=== PATIENT | female | born 1965 | race Caucasian/White ===

== ENCOUNTER → 2018-04-26 | Outpatient (CLI) | payer BC | LOC: RADNMMAIN 10:32 | PROVIDERS: ATTEND Internal Medicine | DX: Z53.9 Procedure and treatment not carried out, unspecified reason (principal) ==

== ENCOUNTER 2018-04-28 07:37 | Day surgery (SDC) | payer BC ==
[2018-04-27 08:39] VITALS: BMI 17.4
[~2018-04-28 07:37] MED LIST: LACTATED RINGERS 1,000 ML IV SCH; LIDOCAINE 1% 20 ML VIAL (10MG/ML) FOR IV START INTRADERMA PRN
[2018-04-28] MEDS ORDERED: LACTATED RINGERS 1,000 ML IV ONE (08:08)
[2018-04-28 08:20] VITALS: TEMP 98.3
[2018-04-28 08:23] LABS: Glucose,Whole Blood 92 mg/dL (75-99)
[2018-04-28] MEDS ORDERED: LIDOCAINE 1% INJ 10MG/ML (20 ML MDV) ONE (08:29)
[2018-04-28] MEDS ORDERED: PROPOFOL 10 MG/ML 20 ML VIAL IV ONE (08:29)
[2018-04-28 08:51] LABS: Calcium 9.3 mg/dL (8.4-10.2); Potassium 4.7 mmol/L (3.5-5.1)
[2018-04-28 09:12] VITALS: RESP 16
[2018-04-28 09:19] VITALS: BP 149/84; PULSE 53
--- NOTE | 2018-04-28 09:20 | P.PCN ---
Date of Procedure: 04/28/18 Procedure(s) Performed: BRIEF HISTORY: Patient is a 52-year-old pleasant white female, scheduled for an elective colonoscopy as a part of screening for colorectal neoplasia. PROCEDURE PERFORMED: Colonoscopy. PREOPERATIVE DIAGNOSIS: Screening for colon cancer. IV sedation per Anesthesia. PROCEDURE: After informed consent was obtained, the patient, was brought into the endoscopy unit. IV sedation was administered by Anesthesia under continuous monitoring. Digital rectal examination was normal. Initially the Olympus CF- 160 flexible video colonoscope was then inserted in the rectum, gradually advanced into the cecum without any difficulty. Careful examination was performed as the scope was gradually being withdrawn. Ileocecal valve and the appendiceal orifice were visualized and appeared normal. Prep was poor in several areas of the colon.Irrigation was performed using irrigation system. The visualized portions of the mucosa of the cecum, ascending colon, transverse colon, descending colon, sigmoid colon, and rectum appeared normal. Retroflexion was performed in the rectum and no lesions were seen. The patient tolerated the procedure well. IMPRESSION: Normal-appearing colon from rectum to cecum with no evidence of colorectal neoplasia. Poor prep in several areas of the colon. RECOMMENDATIONS: Findings of this examination were discussed with the patient as well as a family. She was advised to have a repeat screening colonoscopy in 10 years.
[2018-04-28 09:49] LABS: Glucose,Whole Blood 102 mg/dL (75-99)
== END 2018-04-28 09:55 | disposition home or self-care (01) ==
LOC: ORWHC2ENDO 07:37
PROVIDERS: ATTEND Internal Medicine Gastroenterology
DX: Z12.11 Encounter for screening for malignant neoplasm of colon (principal); I10 Essential (primary) hypertension; E11.9 Type 2 diabetes mellitus without complications; Z94.0 Kidney transplant status; Z79.4 Long term (current) use of insulin; Z79.52 Long term (current) use of systemic steroids; Z79.899 Other long term (current) drug therapy; Z88.2 Allergy status to sulfonamides; Z87.891 Personal history of nicotine dependence
CPT/HCPCS: 45378; 80048

== ENCOUNTER → 2018-04-28 | Outpatient (CLI) | payer BC ==
--- NOTE | 2018-04-30 09:03 | MM ---
Reason for exam: screening (asymptomatic). Last mammogram was performed 3 years and 11 months ago. History: Family history of breast cancer in sister at age 43. Took hormonal contraceptives for 2 years beginning at age 25. Physical Findings: A clinical breast exam by your physician is recommended on an annual basis and results should be correlated with mammographic findings. MG Screening Mammo w CAD Bilateral CC and MLO view(s) were taken. XCCL view(s) were taken of the right breast. Prior study comparison: May 25, 2014, bilateral MG screening mammo w CAD. August 29, 2011, left diagnostic mammogram w/CAD. The breast tissue is extremely dense which could obscure a lesion on mammography. Possible architectural distortion medial left breast versus summation shadow. ASSESSMENT: Incomplete: need additional imaging evaluation, BI-RAD 0 RECOMMENDATION: Ultrasound of the left breast. [facility] will attempt to contact patient to return for ultrasound.
== END | disposition home or self-care (01) ==
LOC: RADMAMWWP 14:02
PROVIDERS: ATTEND Obstetrics & Gynecology
DX: Z12.31 Encounter for screening mammogram for malignant neoplasm of breast (principal); Z80.3 Family history of malignant neoplasm of breast
CPT/HCPCS: 77067

== ENCOUNTER → 2018-04-29 | Outpatient (CLI) | payer BC ==
--- NOTE | 2018-04-27 19:02 | P.STRESS ---
- Stress Test Note Stress Test Results/Findings: Exam Performed: Exam Date: Reason for Exam: Height: Weight: Protocol: Stage: Duration of Exercise: Resting Heart Rate: Resting Blood Pressure: Maximum Achieved Heart Rate: Maximum Achieved Blood Pressure: 85% PMHR: 100% PMHR: METS: Technologist Comment: Stress Test Results/Findings: Patient referred for stress echo. Stress echo canceled and rescheduled for Lexiscan Cardiolite stress test at a later date
[~2018-04-29] MED LIST changes: +DOBUTamine DRIP for NUC MED 500 MG in DEXTROSE/WATER 1 250ML.BAG IV ONE; -LACTATED RINGERS 1,000 ML IV SCH; -LIDOCAINE 1% 20 ML VIAL (10MG/ML) FOR IV START INTRADERMA PRN
--- NOTE | 2018-04-29 18:21 | ECHOS ---
STRESS ECHOCARDIOGRAM DATE OF SERVICE: 04/29/2018 INDICATIONS: Chest pain. MEDICATIONS: See list. BASELINE HEART RATE: 53 BASELINE BLOOD PRESSURE: 161/104 MAXIMUM HEART RATE: 84 MAXIMUM BLOOD PRESSURE: 182/83 85% MPHR: 145 100% MPHR: 170 METS: MAXIMUM STAGE REACHED: III TOTAL EXERCISE TIME: 10:40 minutes CLINICAL INFORMATION: 52-year-old female with a history of palpitations and PVCs and stress test for preop evaluation. RESULTS: Baseline heart rate 53 beats per minute. Baseline blood pressure 161/100 mmHg. Baseline 12-lead ECG shows normal sinus rhythm with a nonspecific ST-T abnormalities with T-wave inversions inferiorly and PVCs on 12-lead ECG. The patient exercised on Trveor protocol for 10 minutes 40 seconds achieving a peak heart rate of only 84 beats per minute. Blood pressure response was normal. There was no ECG evidence for ischemia. No arrhythmias were noted other than occasional PVCs. The baseline 2D echo images showed normal LV size and systolic function without segmental wall motion abnormalities. With dobutamine infusion, there was a stepwise increment in overall LV contractility without developing any wall motion abnormalities. At recovery regional global LV systolic function remained normal. IMPRESSION: 1. Baseline abnormal ECG with PVCs. 2. Hypertension. 3. No ECG evidence for ischemia. 4. No echocardiographic evidence for ischemia. 5. Suboptimal heart rate response to dobutamine infusion but excellent augmentation of overall LV contractility in a stepwise manner with dobutamine infusion (excellent inotropic response). MMODL / IJN: [id number] /
== END | disposition home or self-care (01) ==
LOC: RADNMMAIN 10:34
PROVIDERS: ATTEND Internal Medicine
DX: I49.3 Ventricular premature depolarization (principal); I10 Essential (primary) hypertension; R94.31 Abnormal electrocardiogram [ECG] [EKG]
CPT/HCPCS: 93351; J1250

== ENCOUNTER → 2018-05-04 | Outpatient (CLI) | payer BC ==
--- NOTE | 2018-05-04 12:07 | USB ---
Reason for exam: additional evaluation requested from abnormal screening. History: Family history of breast cancer in sister at age 43. Took hormonal contraceptives for 2 years beginning at age 25. Physical Findings: Nurse did not find any significant physical abnormalities on exam. US Breast Workup LT Technologist: Sintia Blood, RT (R)(M) Left complete breast ultrasound includes all four quadrants, the retroareolar region and axilla. Finding demonstrates a 0.5 x 0.7cm lesion at 11 o'clock when images upright and 1.4 x 0.8 x 1.5cm supine. The mass is hypoechoic with shadowing and taller than wide. Suspicious, biopsy recommended. These results were verbally communicated with the patient and result sheet given to the patient on 05/04/18. ASSESSMENT: Suspicious, BI-RAD 4 RECOMMENDATION: Ultrasound core biopsy of the left breast. (3D post biopsy marker images to cinfirm correlation with distortion) Called Dr. Villavicencio with mammographic findings and has scheduled an appointment for the patient for 05/19/18 at 2:[address] Bishop. Biopsy scheduled for 05/06/18 at 2:20. PRELIMINARY REPORT CALLED AND FAXED TO DR. BISHOP ON 05/04/18.
--- NOTE | 2018-05-04 12:08 | MM ---
Reason for exam: additional evaluation requested from abnormal screening. Last mammogram was performed less than 1 month ago. History: Family history of breast cancer in sister at age 43. Took hormonal contraceptives for 2 years beginning at age 25. Physical Findings: Nurse did not find any significant physical abnormalities on exam. MG 3D Work Up W/Cad LT MLO, LM, and spot compression CC view(s) were taken of the left breast. Prior study comparison: April 28, 2018, bilateral MG screening mammo w CAD. May 25, 2014, bilateral MG screening mammo w CAD. The breast tissue is extremely dense which could obscure a lesion on mammography. Benign calcifications in the left breast. Distortion at 12 o'clock 5-6cm from nipple in the central left breast. These results were verbally communicated with the patient and result sheet given to the patient on 05/04/18. ASSESSMENT: Suspicious, BI-RAD 4 RECOMMENDATION: Ultrasound core biopsy of the left breast. Called Dr. Villavicencio with mammographic findings and has scheduled an appointment for the patient for 05/19/18 at 2:[address] Bishop. Biopsy scheduled for 05/06/18 at 2:20. PRELIMINARY REPORT CALLED AND FAXED TO DR. BISHOP ON 05/04/18.
== END ==
LOC: RADUSWWP 08:44
PROVIDERS: ATTEND Obstetrics & Gynecology
DX: R92.8 Other abnormal and inconclusive findings on diagnostic imaging of breast (principal)
CPT/HCPCS: 77061; 77065

== ENCOUNTER → 2018-05-06 | Day surgery (SDC) | payer BC ==
[2018-05-06 13:53] VITALS: RESP 16; BMI 18.0
[2018-05-06 15:09] VITALS: BP 137/81; PULSE 67; TEMP 98.2
--- NOTE | 2018-05-06 16:08 | USB ---
EXAMINATION TYPE: US biopsy breast VAD LT, MG 3D diag mammo wo cad LT DATE OF EXAM: 05/06/2018 CLINICAL HISTORY: R92.8 PREV ABN.MAMMO. TECHNIQUE: Ultrasound guided core biopsy of left breast. COMPARISON: 05/04/2018 and 04/28/2018 FINDINGS: The procedure of ultrasound guided core biopsy was explained to the patient. Benefits, alternatives, and risks were discussed. An informed consent was then obtained. Preprocedural timeout was performed. The patient was placed in supine positioning for imaging and for the procedure. The overlying skin was prepped and draped in usual sterile fashion. 10 cc of lidocaine buffered with bicarbonate was used as anesthetic into the skin and subcutaneous tissue up to a hypoechoic approximately 7 mm mass in the left breast around the 11:00 position as the breast is noted to be very mobile on exam. Under ultrasound guidance, a 12-gauge vacuum assisted biopsy gun device was used to obtain 5 core samples. Following this, a ribbon-shaped biopsy marker was left in lesion. This appears to correspond to the architectural distortion seen on the prior screening and diagnostic exams The patient tolerated the procedure well without any immediate complication. The patient was kept in the radiology department for short stay after the procedure and then discharged home in stable condition. IMPRESSION: Successful, uncomplicated ultrasound guided core biopsy of a 7 mm mass in the left breast around the 11:00 position although the breast is noted to be extremely mobile on real-time exam, full pathology results to follow. This appears to correspond to the architectural distortion seen on the screening and diagnostic mammograms on post biopsy marker imaging. Pathology Results: Benign LEFT BREAST LESION, NEEDLE CORE BIOPSIES: Fibrocystic type changes including dense breast stroma with benign, focally cystically dilated, ductal units and some features suggestive of fibroadenomatoid change. Recommendation Follow up mammogram of the left breast in 6 months. YESICA
== END | disposition home or self-care (01) ==
LOC: RADUSWWP 13:32
PROVIDERS: ATTEND Surgery
DX: N60.12 Diffuse cystic mastopathy of left breast (principal); R92.2 Inconclusive mammogram
CPT/HCPCS: 88305; 77065; 77061; 19083; A4648; J2001

== ENCOUNTER → 2018-05-13 | Outpatient (CLI) | payer BC ==
[2018-05-13 17:06] LABS: HCT 33.6 % (34.0-46.0); HGB 10.5 gm/dL (11.4-16.0); Hypochromasia Slight; MCH 31.8 pg (25.0-35.0); MCHC 31.2 g/dL (31.0-37.0); MCV 101.8 fL (80.0-100.0); Macrocytosis Slight; Mean Platelet Volume 8.5; Platelet Count 170 k/uL (150-450); RDW 15.3 % (11.5-15.5); WBC 7.5 k/uL (3.8-10.6)
[2018-05-13 20:05] LABS: Band Neutrophils % 5 %; Eosinophils # (M) 0.08 k/uL (0-0.7); Lymphocytes # (M) 1.65 k/uL (1.0-4.8); Monocytes # (M) 0.38 k/uL (0-1.0); Myelocytes # (M) 0.08 k/uL (0); Myelocytes % 1 %; Neutrophils % (M) 68 %; Nucleated Red Blood Cells 0 /100 WBC (0-0); Total Cells Counted 200
[2018-05-13 20:06] LABS: Reactive Lymphocytes Present
[2018-05-13 20:07] LABS: Large Platelets Present; Polychromasia Present
== END | disposition home or self-care (01) ==
LOC: LABPAT 15:28
PROVIDERS: ATTEND Obstetrics & Gynecology
DX: Z01.818 Encounter for other preprocedural examination (principal); I10 Essential (primary) hypertension; D06.9 Carcinoma in situ of cervix, unspecified; Z01.812 Encounter for preprocedural laboratory examination
CPT/HCPCS: 36415; 85025; 93005

== ENCOUNTER 2018-05-18 07:49 | Day surgery (SDC) | payer BC ==
[2018-05-14 13:29] VITALS: BMI 18.5
[~2018-05-18 07:49] MED LIST changes: +DEXAMETHASONE SOD PHOSPHATE 10 MG/ML 1 ML VIAL IV ONE; -DOBUTamine DRIP for NUC MED 500 MG in DEXTROSE/WATER 1 250ML.BAG IV ONE; +LACTATED RINGERS 1,000 ML IV SCH; +LIDOCAINE 1% 20 ML VIAL (10MG/ML) FOR IV START INTRADERMA PRN; +MIDAZOLAM 2 MG/2 ML VIAL IV PRN; +ONDANSETRON 4 MG/2 ML VIAL IVP ONE; +ceFAZolin 1,000 MG in DEXTROSE/WATER 1 50ML.BAG IV ONE; +fentaNYL (PF) 50 MCG/ML 2 ML AMP IV PRN
[2018-05-18 08:40] VITALS: TEMP 98.2
[2018-05-18 08:48] LABS: Glucose,Whole Blood 164 mg/dL (75-99)
[2018-05-18] MEDS ORDERED: LIDOCAINE 1% INJ 10MG/ML (20 ML MDV) ONE (09:30)
[2018-05-18] MEDS ORDERED: MIDAZOLAM 2 MG/2 ML VIAL ONE (09:30)
[2018-05-18] MEDS ORDERED: fentaNYL (PF) 50 MCG/ML 2 ML AMP ONE (09:30)
[2018-05-18] MEDS ORDERED: HYDROCORTISONE SUCCINATE 100 MG/2 ML VIAL ONE (09:30)
[2018-05-18] MEDS ORDERED: PROPOFOL 10 MG/ML 20 ML VIAL IV ONE (09:30)
[2018-05-18] MEDS ORDERED: ROPIVACAINE 5 MG/ML 30 ML VIAL MISCELLANE ONE ×2 (09:41)
[2018-05-18] MEDS ORDERED: IODINE/POTASS IOD (LUGOLS) BTL TOPICAL ONE (09:55)
[2018-05-18] MEDS ORDERED: FERRIC SUBSULFATE (MONSELS) JAR TOPICAL ONE (09:55)
--- NOTE | 2018-05-18 10:23 | P.OP ---
Date of Procedure: 05/18/18 Preoperative Diagnosis: ANAT 3 Postoperative Diagnosis: same Procedure(s) Performed: Cervical cold knife cone biopsy Surgeon: Toyin Villavicencio Estimated Blood Loss (ml): 25 IV fluids (ml): 100 Urine output (ml): 500 Pathology: other Condition: stable Disposition: PACU Indications for Procedure: ANAT 3 Operative Findings: Cervix free of any gross lesions. Description of Procedure: After the patient was met in the preoperative holding area and all questions were answered, she was taken to the operating room where anesthetic was administered without incident. She was positioned, prepped and draped in the dorsal lithotomy position. Bladder was drained for approximately 100 mL of clear urine. Speculum was placed in the vagina and the cervix was grasped anteriorly with single-tooth tenaculum. Sutures were placed at the 3 and 9:00 positions superficially with 2-0 Vicryl suture. Lugol's was placed on the cervix to delineate the transformation zone. 11 blade scalpel was utilized to incise the cervix just lateral to the transformation zone. This was angled in to create a cone shaped specimen. This was removed. Bovie electrocautery was utilized to cauterize the base of the biopsy. Persistent small amount of bleeding was encountered. The sutures previously placed were therefore utilized to superficially stitch the edges of the biopsy in a running fashion circumferentially. This allowed for significant improvement in hemostasis. A piece of Surgicel was then placed in the remaining on biopsies placed. Hemostasis was then noted. Instruments removed from the vagina. Patient was awoken from anesthetic without incident.
[2018-05-18] MEDS ORDERED: INSULIN ASPART 100 UNIT/ML 1 ML 10 ML VIAL SQ ONE (10:46)
[2018-05-18 10:54] LABS: Glucose,Whole Blood 239 mg/dL (75-99)
[2018-05-18] MEDS ORDERED: LACTATED RINGERS 1,000 ML IV ONE (11:04)
[2018-05-18 11:27] VITALS: RESP 18
[2018-05-18 11:33] LABS: Glucose,Whole Blood 217 mg/dL (75-99)
[2018-05-18 11:45] VITALS: BP 110/62; PULSE 64
== END 2018-05-18 11:58 | disposition home or self-care (01) ==
LOC: OR 07:49
PROVIDERS: ATTEND Obstetrics & Gynecology
DX: D06.0 Carcinoma in situ of endocervix (principal); D64.9 Anemia, unspecified; K21.9 Gastro-esophageal reflux disease without esophagitis; Z87.891 Personal history of nicotine dependence; E11.9 Type 2 diabetes mellitus without complications; Z79.4 Long term (current) use of insulin; I10 Essential (primary) hypertension; N28.9 Disorder of kidney and ureter, unspecified; Q61.3 Polycystic kidney, unspecified; Z79.52 Long term (current) use of systemic steroids; Z79.899 Other long term (current) drug therapy; Z88.2 Allergy status to sulfonamides
CPT/HCPCS: 57520; 81025; 88307; J2250; J1100; J1720; J2405; J2001; J3010; J0690; J2795; J2704

== ENCOUNTER 2018-07-27 13:17 | Inpatient (IN) | payer BC ==
[2018-07-27] MEDS ORDERED: SODIUM CHLORIDE 0.9% 1,000 ML IV STA (14:57)
[2018-07-27] MEDS ORDERED: ONDANSETRON 4 MG/2 ML VIAL IM STA (14:57)
[2018-07-27] MEDS ORDERED: ONDANSETRON 4 MG/2 ML VIAL IVP STA (15:14)
[2018-07-27 15:32] LABS: Appearance,Urine Clear (Clear); Bacteria,Urine Occasional /hpf; Bilirubin,Urine Negative (Negative); Blood,Urine Trace (Negative); Color,Urine Light Yellow; Glucose,Urine (UA) Trace (Negative); Ketones,Urine Negative (Negative); Leukocyte Esterase,Urine Negative (Negative); Mucus,Urine Rare /hpf; Nitrite,Urine Negative (Negative); PH, Urine 5.5 (5.0-8.0); Protein,Urine 1+ (Negative); RBC,Urine 1 /hpf (0-5); Specific Gravity,Urine 1.008 (1.001-1.035); Squamous Epithelial Cell,Urine 2 /hpf (0-4); Urobilinogen,Urine <2.0 mg/dL (<2.0)
[2018-07-27 15:35] LABS: HGB 10.9 gm/dL (11.4-16.0); MCH 31.1 pg (25.0-35.0); MCHC 31.1 g/dL (31.0-37.0); MCV 100.1 fL (80.0-100.0); Macrocytosis Slight; Mean Platelet Volume 7.3; Platelet Count 213 k/uL (150-450); Poikilocytosis Slight; RBC 3.49 m/uL (3.80-5.40); RDW 14.4 % (11.5-15.5); WBC 7.9 k/uL (3.8-10.6)
[2018-07-27 15:36] LABS: Calcium 9.4 mg/dL (8.4-10.2); Magnesium 1.8 mg/dL (1.6-2.3); Potassium 5.3 mmol/L (3.5-5.1)
[2018-07-27 15:43] LABS: Phosphorus 11.5 mg/dL (2.5-4.5)
--- NOTE | 2018-07-27 15:46 | ED ---
General Adult HPI - General Chief complaint: Weakness Stated complaint: weakness, unable to eat Source: patient Mode of arrival: ambulatory Limitations: physical limitation - Related Data Home Medications Medication Instructions Recorded Confirmed Ferrous Sulfate [Feosol] 325 mg PO DAILY 03/31/16 07/27/18 Mycophenolate Mofetil [Cellcept] 1,000 mg PO BID 03/31/16 07/27/18 Sodium Bicarbonate 650 mg PO BID 03/31/16 07/27/18 Tacrolimus [Prograf] 5 mg PO Q12H 03/31/16 07/27/18 predniSONE 5 mg PO DAILY 03/31/16 07/27/18 Doxazosin [Cardura] 1 mg PO HS 04/27/18 07/27/18 Insulin Glargine,Hum.rec.anlog 9 units SQ HS 04/27/18 07/27/18 [Toujeo Solostar] Insulin Aspart [Novolog Flexpen] See Protocol SQ AC-TID 05/04/18 07/27/18 Atenolol [Tenormin] 50 mg PO BID 07/27/18 07/27/18 Calcitriol [Rocaltrol] 0.25 mcg PO BID 07/27/18 07/27/18 Calcium Acetate [Phoslo] 1,334 mg PO TID 07/27/18 07/27/18 Ergocalciferol (Vitamin D2) 50,000 unit PO MOTH 07/27/18 07/27/18 [Vitamin D2] Magnesium Oxide [Magox 400] 400 mg PO DAILY 07/27/18 07/27/18 Tacrolimus [Prograf] 1 mg PO Q12H 07/27/18 07/27/18 Allergies Allergy/AdvReac Type Severity Reaction Status Date / Time Sulfa (Sulfonamide Allergy Rash/Hives Verified 07/27/18 14:39 Antibiotics) Review of Systems ROS Statement: Those systems with pertinent positive or pertinent negative responses have been documented in the HPI. ROS Other: All systems not noted in ROS Statement are negative. Past Medical History Past Medical History: Diabetes Mellitus, GERD/Reflux, Hypertension, Renal Disease Additional Past Medical History / Comment(s): polycystic kidney, end stage renal disease. parathyroid disorder History of Any Multi-Drug Resistant Organisms: None Reported Past Surgical History: Section, Uterine Ablation Additional Past Surgical History / Comment(s): Hernia surgery 12/2014, kidney transplant 02/2015, parathyroid removal 2014, whipple 2009, ectopic 2001 Past Anesthesia/Blood Transfusion Reactions: No Reported Reaction Past Psychological History: No Psychological Hx Reported Smoking Status: Former smoker Past Alcohol Use History: None Reported Past Drug Use History: None Reported - Past Family History Sister(s) Family Medical History: Cancer Additional Family Medical History / Comment(s): Cervical CA Father Family Medical History: Diabetes Mellitus Additional Family Medical History / Comment(s): polycystic kidney General Exam Limitations: physical limitation Course Vital Signs 07/27/18 13:20 Temperature 98.4 F Pulse Rate 58 L Respiratory 18 Rate Blood Pressure 157/70 O2 Sat by Pulse 100 Oximetry Medical Decision Making - Medical Decision Making Dictation was produced using Expert TA dictation software. please excuse any grammatical, word or spelling errors. Chief Complaint: 52-year-old female past medical history of end-stage renal disease status post hemodialysis and renal transplant presents with nausea and vomiting. History of Present Illness: She states that her symptoms have been ongoing for approximate 4 days. She states that she's been having multiple bouts of nausea vomiting and poor by mouth tolerance. Patient denies any constitutional symptoms. She called her research scholar office today and was instructed to come to the emergency department patient has a renal transplant that's working very slowly. She has history of. To get dialysis and hemodialysis. Patient is still currently taking immunosuppressive medications. The ROS documented in this emergency department record has been reviewed and confirmed by me. Those systems with pertinent positive or negative responses have been documented in the HPI. All other systems are other negative and/or noncontributory. PHYSICAL EXAM: General Impression: Alert and oriented x3, not in acute distress HEENT: Normocephalic atraumatic, extra-ocular movements intact, pupils equal and reactive to light bilaterally, mucous membranes moist. Cardiovascular: Heart regular rate and rhythm, S1&S2 audible, no murmurs, rubs or gallops Chest: Lungs clear to auscultation bilaterally, no rhonchi, no wheeze, no rales Abdomen: Bowel sounds present, abdomen soft, non-tender, non-distended, no organomegaly Musculoskeletal: Pulses present and equal in all extremities, no peripheral edema Motor: Power 5/5 bilaterally, no focal deficits noted Neurological: CN II-XII grossly intact, no focal motor or sensory deficits noted Skin: Intact with no visualized rashes Psych: Normal affect and mood ED course: 52-year-old female presents with chief complaint of nausea, vomiting and generalized weakness. Signs upon arrival are within acceptable limits. Laboratory evaluation obtained. CBC unremarkable. Metabolic panel shows sodium 126, potassium 5.3. There is a mild Acidosis. Lactic acidosis of 2.5. Creatinine of 5.02, BUN of 68. Urinalysis is rather unremarkable. If once test negative. Patient is very labile in terms of kidney function. Patient given intravenous fluids. Patient also given some Kayexalate for hyperkalemia. Patient be admitted with nephrology on consult. EKG interpretation: Ventricular rate 53, sinus bradycardia, AZ interval 170, care is 88, QTc 444. No AZ prolongation, no QTC prolongation, no ST or T-wave changes noted. . Overall, this EKG is unremarkable - Lab Data Result diagrams: 07/27/18 14:41 07/27/18 14:41 Lab Results 07/27/18 07/27/18 07/27/18 Range/Units 14:41 14:41 14:41 WBC 7.9 (3.8-10.6) k/uL RBC 3.49 L (3.80-5.40) m/uL Hgb 10.9 L (11.4-16.0) gm/dL Hct 35.0 (34.0-46.0) % MCV 100.1 H (80.0-100.0) fL MCH 31.1 (25.0-35.0) pg MCHC 31.1 (31.0-37.0) g/dL RDW 14.4 (11.5-15.5) % Plt Count 213 (150-450) k/uL Neutrophils % (Manual) 73 % Band Neutrophils % 5 % Lymphocytes % (Manual) 19 % Monocytes % (Manual) 3 % Neutrophils # (Manual) 6.10 (1.3-7.7) k/uL Lymphocytes # (Manual) 1.50 (1.0-4.8) k/uL Monocytes # (Manual) 0.24 (0-1.0) k/uL Nucleated RBCs 0 (0-0) /100 WBC Manual Slide Review Performed Poikilocytosis Slight Macrocytosis Slight Sodium 126 L (137-145) mmol/L Potassium 5.3 H (3.5-5.1) mmol/L Chloride 96 L (98-107) mmol/L Carbon Dioxide 14 L (22-30) mmol/L Anion Gap 16 mmol/L BUN 68 H (7-17) mg/dL Creatinine 5.02 H (0.52-1.04) mg/dL Est GFR (CKD-EPI)AfAm 11 (>60 ml/min/1.73 sqM) Est GFR (CKD-EPI)NonAf 9 (>60 ml/min/1.73 sqM) Glucose 214 H (74-99) mg/dL Plasma Lactic Acid Billy 2.5 H* (0.7-2.0) mmol/L Calcium 9.4 (8.4-10.2) mg/dL Phosphorus 11.5 H* (2.5-4.5) mg/dL Magnesium 1.8 (1.6-2.3) mg/dL Urine Color Urine Appearance (Clear) Urine pH (5.0-8.0) Ur Specific [place] (1.001-1.035) Urine Protein (Negative) Urine Glucose (UA) (Negative) Urine Ketones (Negative) Urine Blood (Negative) Urine Nitrite (Negative) Urine Bilirubin (Negative) Urine Urobilinogen (<2.0) mg/dL Ur Leukocyte Esterase (Negative) Urine RBC (0-5) /hpf Urine WBC (0-5) /hpf Ur Squamous Epith Cells (0-4) /hpf Urine Bacteria (None) /hpf Urine Mucus (None) /hpf Influenza Type A RNA (Not Detectd) Influenza Type B (PCR) (Not Detectd) 07/27/18 07/27/18 Range/Units 14:41 15:22 WBC (3.8-10.6) k/uL RBC (3.80-5.40) m/uL Hgb (11.4-16.0) gm/dL Hct (34.0-46.0) % MCV (80.0-100.0) fL MCH (25.0-35.0) pg MCHC (31.0-37.0) g/dL RDW (11.5-15.5) % Plt Count (150-450) k/uL Neutrophils % (Manual) % Band Neutrophils % % Lymphocytes % (Manual) % Monocytes % (Manual) % Neutrophils # (Manual) (1.3-7.7) k/uL Lymphocytes # (Manual) (1.0-4.8) k/uL Monocytes # (Manual) (0-1.0) k/uL Nucleated RBCs (0-0) /100 WBC Manual Slide Review Poikilocytosis Macrocytosis Sodium (137-145) mmol/L Potassium (3.5-5.1) mmol/L Chloride (98-107) mmol/L Carbon Dioxide (22-30) mmol/L Anion Gap mmol/L BUN (7-17) mg/dL Creatinine (0.52-1.04) mg/dL Est GFR (CKD-EPI)AfAm (>60 ml/min/1.73 sqM) Est GFR (CKD-EPI)NonAf (>60 ml/min/1.73 sqM) Glucose (74-99) mg/dL Plasma Lactic Acid Billy (0.7-2.0) mmol/L Calcium (8.4-10.2) mg/dL Phosphorus (2.5-4.5) mg/dL Magnesium (1.6-2.3) mg/dL Urine Color Light Yellow Urine Appearance Clear (Clear) Urine pH 5.5 (5.0-8.0) Ur Specific [place] 1.008 (1.001-1.035) Urine Protein 1+ H (Negative) Urine Glucose (UA) Trace H (Negative) Urine Ketones Negative (Negative) Urine Blood Trace H (Negative) Urine Nitrite Negative (Negative) Urine Bilirubin Negative (Negative) Urine Urobilinogen <2.0 (<2.0) mg/dL Ur Leukocyte Esterase Negative (Negative) Urine RBC 1 (0-5) /hpf Urine WBC 2 (0-5) /hpf Ur Squamous Epith Cells 2 (0-4) /hpf Urine Bacteria Occasional H (None) /hpf Urine Mucus Rare H (None) /hpf Influenza Type A RNA Not Detected (Not Detectd) Influenza Type B (PCR) Not Detected (Not Detectd) Disposition Clinical Impression: GHAZAL (acute kidney injury) Disposition: ADMITTED IP TO THIS HOSP Condition: Fair Referrals: Krystyna White MD [Primary Care Provider] - 1-2 days Decision Time: 16:34
--- NOTE | 2018-07-27 15:49 | XR ---
EXAMINATION TYPE: XR chest 2V DATE OF EXAM: 07/27/2018 COMPARISON: CT abdomen dated 2012 HISTORY: Weakness, unable to eat TECHNIQUE: Frontal and lateral views of the chest are obtained. FINDINGS: There is no focal air space opacity, pleural effusion, or pneumothorax seen. The cardiac silhouette size is within normal limits. The osseous structures are intact. Surgical clips in the u pper abdomen. There is branching air in the right upper quadrant. IMPRESSION: No acute cardiopulmonary process. Pneumobilia is chronic.
[2018-07-27 16:01] LABS: Band Neutrophils % 5 %; Monocytes # (M) 0.24 k/uL (0-1.0); Neutrophils % (M) 73 %; Nucleated Red Blood Cells 0 /100 WBC (0-0); Total Cells Counted 100
[2018-07-27] MEDS ORDERED: ACETAMINOPHEN TAB 325 MG TAB PO PRN (16:30)
[2018-07-27] MEDS ORDERED: NALOXONE 0.4 MG/ML 1 ML VIAL IV PRN (16:30)
[2018-07-27] MEDS ORDERED: SODIUM POLYSTYRENE SULFONATE 15 GM/60 ML BOTTLE PO ONE (16:32)
[2018-07-27 18:37] LABS: Glucose,Whole Blood 195 mg/dL (75-99)
[2018-07-27] MEDS ORDERED: ONDANSETRON 4 MG TAB PO PRN (20:15)
[2018-07-27] MEDS: SODIUM CHLORIDE 0.9% 1,000 ML IV SCH (21:01)
[2018-07-27] MEDS: CALCITRIOL 0.25 MCG CAP PO SCH (21:26)
[2018-07-27] MEDS: ATENOLOL 50 MG TAB PO SCH (21:26)
[2018-07-27] MEDS: SODIUM BICARBONATE TAB 650 MG TAB PO SCH (21:26)
[2018-07-27] MEDS: DOXAZOSIN 1 MG TAB PO SCH (21:26)
[2018-07-27 21:29] LABS: Glucose,Whole Blood 284 mg/dL (75-99)
[2018-07-27] MEDS: INSULIN DETEMIR 100 UNIT/ML 10 ML VIAL SQ SCH (21:31)
[2018-07-27] MEDS: INSULIN ASPART 100 UNIT/ML 1 ML 10 ML VIAL SQ SCH (21:31)
[2018-07-27] MEDS: CALCIUM ACETATE 667 MG CAP PO SCH (21:34)
[2018-07-27] MEDS ORDERED: ALPRAZolam 0.25 MG TAB PO PRN (21:36)
[2018-07-27] MEDS: HYDROcodone/APAP 5-325MG 1 EACH TAB PO PRN (21:57)
[2018-07-27] MEDS: CELLCEPT 500 MG PO SCH (22:03)
[2018-07-27] MEDS: PROGRAF 1 MG PO SCH (22:03)
[2018-07-27 22:04] LABS: Prothrombin Time 10.6 sec (9.0-12.0)
[2018-07-27] MEDS: PROGRAF 5 MG PO SCH (22:04)
[2018-07-27 22:08] LABS: Albumin 3.5 g/dL (3.5-5.0); Calcium 8.9 mg/dL (8.4-10.2); Potassium 4.8 mmol/L (3.5-5.1); Total Bilirubin 0.5 mg/dL (0.2-1.3); Total Protein 5.8 g/dL (6.3-8.2)
[2018-07-27] MEDS: PANTOPRAZOLE 40 MG/10 ML VIAL IVP SCH (22:14)
--- NOTE | 2018-07-27 22:57 | HP ---
HISTORY AND PHYSICAL CHIEF COMPLAINT: Renal failure. HISTORY OF PRESENT ILLNESS: This 52-year-old woman with a past medical history of multiple medical problems, including history of diabetes mellitus, GERD, hypertension, history of renal disease, history of polycystic kidney disease, history of renal transplant, being followed by Dr. White in the outpatient setting, is also being followed by [facility]. The last transplant was in 2013 on the right pelvic kidney. The patient also had Whipple's procedure for a pancreatic mass previously. The patient also has some baseline diarrhea. From this last weekend onwards the patient was not feeling well. On Thursday subsequently the patient had nausea, vomiting and increased diarrhea. The patient continued to feel weak and tired and the patient came to [facility] and was admitted for further evaluation and treatment. The patient was unable to keep anything down. In the ER, the patient was found to have a creatinine of 5.02. The baseline creatinine is around 2.6 and 3.79, sodium 127, potassium 5.3, plasma lactic acid 2.4. The patient was started on IV fluids and admitted for further evaluation and treatment. There is no history of any fever, rigor or chills. No history of headache, loss of consciousness, seizures at this time. The phosphorus was found to be 11.5. PAST MEDICAL HISTORY: 1. History of diabetes mellitus. 2. History of GERD. 3. History of hypertension. 4. History of polycystic kidney disease. 5. History of renal disease. 6. History of renal transplant. HOME MEDICATIONS: 1. Prednisone 5 mg daily. 2. Prograf 6 mg b.i.d. 3. Sodium bicarb 650 mg p.o. b.i.d. 4. CellCept 2000 mg p.o. b.i.d. 5. Magnesium oxide 400 mg p.o. daily. 6. NovoLog before meals t.i.d. 7. Toujeo 9 units subcutaneously at bedtime. 8. Iron sulfate 325 mg p.o. daily. 9. Vitamin D2 50,000 p.o. monthly. 10.Cardura 1 mg p.o. at bedtime. 11.PhosLo 1334 mg p.o. t.i.d. 12.Rocaltrol 0.25 mcg p.o. b.i.d. 13.Tenormin 50 mg p.o. b.i.d. ALLERGIES: SULFA. FAMILY HISTORY: History of cervical cancer in the family. SOCIAL HISTORY: Previous history of smoking. No history of alcohol intake. REVIEW OF SYSTEMS: ENT: No diminished hearing. No diminished vision. CARDIOVASCULAR SYSTEM: No angina, palpitations. RESPIRATORY SYSTEM: As mentioned earlier. GI: As mentioned earlier. : As mentioned earlier. NERVOUS SYSTEM: No numbness, weakness. ALLERGY/IMMUNOLOGY: No asthma, hayfever. MUSCULOSKELETAL: As mentioned earlier. HEMATOLOGY/ONCOLOGY: No history of anemia. ENDOCRINE: As mentioned earlier. CONSTITUTIONAL: As mentioned earlier. DERMATOLOGY: Negative. RHEUMATOLOGY: Negative. PSYCHIATRY: As mentioned earlier. PHYSICAL EXAMINATION: Patient alert and oriented x3. Pulse 64, blood pressure 143/72, respiration 19, temperature 98.9, pulse ox 97% on room air. HEENT: Conjunctivae normal. Facial puffiness present. Oral mucosa moist. NECK: Edematous. Otherwise, jugular venous distention visible. CARDIOVASCULAR SYSTEM: S1, S2 muffled. Ejection systolic murmur present. No S3. No S4. RESPIRATORY SYSTEM: Breath sounds diminished at the bases. A few scattered rhonchi and crackles. ABDOMEN: Soft, non-tender. LEGS: Minimal edema. NERVOUS SYSTEM: Higher functions as mentioned earlier. Moves all 4 limbs. Mild diffuse weakness. LYMPHATICS: No lymph node palpable in neck, axillae or groin. SKIN: No ulcer, rash, bleeding. JOINTS: No active deforming arthropathy. LABS: WBC 7.9, hemoglobin 10.9, MCV 100.1, and sodium 126, potassium 5.3. Creatinine is 5.02. ASSESSMENT: 1. Acute on chronic renal failure with possible acute prerenal acute tubular necrosis secondary to prerenal factors and dehydration. 2. Chronic kidney disease, stage III. 3. Hyponatremia. 4. Hyperkalemia. 5. Metabolic acidosis, present on admission. 6. Hyperphosphatemia. 7. Anemia, macrocytic, of chronic disease. 8. History of polycystic kidney disease and renal transplant. 9. History of diabetes mellitus, type 2. 10.Gastroesophageal reflux disease. 11.Hypertension. 12.History of section. 13.History of uterine ablation. 14.History of parathyroidectomy. 15.History of Whipple's procedure for pancreatic tumor. 16.History of ectopic . 17.Remote history of nicotine dependence. 18.Mild to moderate protein-calorie malnutrition with a body mass index of 18.1. 19.FULL CODE. RECOMMENDATIONS AND DISCUSSION: In this 52-year-old woman who presented with multiple complex medical issues, we will monitor the patient closely, continue the current management, continue symptomatic treatment. The creatinine is definitely worse and exact etiology is undetermined at this time. I recommend IV fluids cautiously and also nephrology evaluation. Would also recommend symptomatic treatment for the gastroenterologic symptoms and start with clear liquids closely. Avoid nephrotoxic medication. Monitor renal function closely. Monitor blood sugars closely. Resume the home medications. Medication reconciliation was done. Prognosis guarded because of multiple complex medical issues. Discussed with the patient, who understands and agrees. Further recommendations to follow. A copy of this dictation is being forwarded to Dr. White, who is the primary physician. See orders for further details. MMODL / IJN: [id number] /
[2018-07-28] MEDS: SODIUM CHLORIDE 0.9% 1,000 ML IV SCH ×3 (03:18→21:28)
[2018-07-28 05:53] LABS: Glucose,Whole Blood 82 mg/dL (75-99)
[2018-07-28] MEDS: INSULIN ASPART 100 UNIT/ML 1 ML 10 ML VIAL SQ SCH ×4 (06:07→21:27)
[2018-07-28] MEDS: SEVELAMER 800 MG TAB PO SCH ×3 (06:17→19:57)
[2018-07-28 06:30] LABS: Basophils % (A) 1 %; Eosinophils # (A) 0.1 k/uL (0-0.7); Eosinophils % (A) 1 %; HCT 29.8 % (34.0-46.0); Lymphocytes # (A) 1.8 k/uL (1.0-4.8); Lymphocytes % (A) 27 %; MCH 31.4 pg (25.0-35.0); MCHC 31.6 g/dL (31.0-37.0); MCV 99.3 fL (80.0-100.0); Mean Platelet Volume 7.5; Monocytes # (A) 0.3 k/uL (0-1.0); Monocytes % (A) 5 %; Neutrophils # (A) 4.3 k/uL (1.3-7.7); Neutrophils % (A) 64 %; Platelet Count 183 k/uL (150-450); Poikilocytosis Slight; RDW 14.5 % (11.5-15.5); WBC 6.8 k/uL (3.8-10.6)
[2018-07-28 06:34] LABS: HGB 9.4 gm/dL (11.4-16.0)
[2018-07-28 06:43] LABS: Calcium 8.8 mg/dL (8.4-10.2); Potassium 4.9 mmol/L (3.5-5.1)
[2018-07-28] MEDS: PANTOPRAZOLE 40 MG/10 ML VIAL IVP SCH ×2 (08:35→20:15)
[2018-07-28] MEDS: MAGNESIUM OXIDE 400 MG TAB PO SCH (08:35)
[2018-07-28] MEDS: SODIUM BICARBONATE TAB 650 MG TAB PO SCH ×2 (08:35→20:21)
[2018-07-28] MEDS: FERROUS SULFATE 325 MG TAB PO SCH (08:35)
[2018-07-28] MEDS: ATENOLOL 50 MG TAB PO SCH ×2 (08:35→20:15)
[2018-07-28] MEDS: CALCITRIOL 0.25 MCG CAP PO SCH ×2 (08:35→20:15)
[2018-07-28] MEDS: CALCIUM ACETATE 667 MG CAP PO SCH ×3 (08:35→20:21)
[2018-07-28] MEDS: predniSONE 5 MG TAB PO SCH (08:36)
[2018-07-28] MEDS: CELLCEPT 500 MG PO SCH ×2 (08:36→20:19)
[2018-07-28] MEDS: HEPARIN SODIUM,PORCINE 5,000 UNIT/ML 1 ML VIAL SQ SCH ×2 (08:36→20:15)
[2018-07-28] MEDS: PROGRAF 5 MG PO SCH ×2 (08:36→20:18)
[2018-07-28] MEDS: PROGRAF 1 MG PO SCH ×2 (08:36→20:16)
--- NOTE | 2018-07-28 11:37 | P.NPCON ---
History of Present Illness - Reason for Consult chronic renal failure - History of Present Illness Reason for consultation: Acute kidney injury on chronic kidney disease History of present illness: Patient is a 52-year-old female seen in renal consultation for acute kidney injury and chronic kidney disease. Patient has history of chronic kidney disease stage V with baseline creatinine in the range of 3.5-4. Patient has a history of donor renal allograft from 2015 from [facility]. Posttransplant she had developed hydronephrosis and a renal function has remained quite weak. Renal function has declined recently. Creatinine today is 5.21. Patient was interested in peritoneal dialysis but was told she is not a candidate due to hernias. She presented to the hospital due to not feeling well along with nausea and vomiting. No significant diarrhea. No fever or chills. Hemodynamically she stable. Sodium is improved to 132. She is maintained on Prograf, CellCept and prednisone for immunosuppression. Admits to good urine output. Denies use of NSAIDs. Vital signs are stable. General: The patient appeared well nourished and normally developed. HEENT: Head exam is unremarkable. Neck is without jugular venous distension. LUNGS: Lungs are clear to auscultation and percussion. Breath sounds decreased. HEART: Rate and Rhythm are regular. First and second heart sounds normal. No murmurs, rubs or gallops. ABDOMEN: Abdominal exam reveals normal bowel sounds. Non-tender and non- distended. No evidence of peritonitis. EXTREMITITES: No clubbing, cyanosis, or edema. Past Medical History Past Medical History: Diabetes Mellitus, GERD/Reflux, Hypertension, Renal Disease Additional Past Medical History / Comment(s): polycystic kidney, end stage renal disease. parathyroid disorder History of Any Multi-Drug Resistant Organisms: None Reported Past Surgical History: Section, Uterine Ablation Additional Past Surgical History / Comment(s): Hernia surgery 12/2014, kidney transplant 02/2015, parathyroid removal 2014, whipple 2009, ectopic 2001 Past Anesthesia/Blood Transfusion Reactions: No Reported Reaction Past Psychological History: No Psychological Hx Reported Smoking Status: Former smoker Past Alcohol Use History: None Reported Additional Past Alcohol Use History / Comment(s): smoked on and off 10 years socially quit 15 years ago Past Drug Use History: None Reported - Past Family History Sister(s) Family Medical History: Cancer Additional Family Medical History / Comment(s): Cervical CA Father Family Medical History: Diabetes Mellitus Additional Family Medical History / Comment(s): polycystic kidney Medications and Allergies Home Medications Medication Instructions Recorded Confirmed Type Ferrous Sulfate [Feosol] 325 mg PO DAILY 03/31/16 07/27/18 History Mycophenolate Mofetil [Cellcept] 1,000 mg PO BID 03/31/16 07/27/18 History Sodium Bicarbonate 650 mg PO BID 03/31/16 07/27/18 History Tacrolimus [Prograf] 5 mg PO Q12H 03/31/16 07/27/18 History predniSONE 5 mg PO DAILY 03/31/16 07/27/18 History Doxazosin [Cardura] 1 mg PO HS 04/27/18 07/27/18 History Insulin Glargine,Hum.rec.anlog 9 units SQ HS 04/27/18 07/27/18 History [Toujeo Solostar] Insulin Aspart [Novolog Flexpen] See Protocol SQ AC-TID 05/04/18 07/27/18 History Atenolol [Tenormin] 50 mg PO BID 07/27/18 07/27/18 History Calcitriol [Rocaltrol] 0.25 mcg PO BID 07/27/18 07/27/18 History Calcium Acetate [Phoslo] 1,334 mg PO TID 07/27/18 07/27/18 History Ergocalciferol (Vitamin D2) 50,000 unit PO MOTH 07/27/18 07/27/18 History [Vitamin D2] Magnesium Oxide [Magox 400] 400 mg PO DAILY 07/27/18 07/27/18 History Tacrolimus [Prograf] 1 mg PO Q12H 07/27/18 07/27/18 History Allergies Allergy/AdvReac Type Severity Reaction Status Date / Time Sulfa (Sulfonamide Allergy Rash/Hives Verified 07/27/18 14:39 Antibiotics) Physical Exam Vitals: Vital Signs Temp Pulse Pulse Resp BP BP Pulse Ox 07/28/18 07:30 96.3 F L 59 L 20 135/69 99 07/28/18 03:16 98.8 F 57 L 18 126/77 94 L 07/28/18 03:13 62 18 07/28/18 00:00 98.2 F 62 18 148/75 96 07/27/18 20:00 98.4 F 88 20 180/85 95 07/27/18 18:41 98.9 F 64 19 143/72 97 07/27/18 13:20 98.4 F 58 L 18 157/70 100 Intake and Output 07/27/18 07/28/18 07/28/18 22:59 06:59 14:59 Intake Total 200 740 100 Balance 200 740 100 Intake: Intake, IV Titration 200 500 100 Amount Sodium Chloride 0.9% 1, 200 500 100 000 ml @ 100 mls/hr IV . Q10H [facility] Rx#:[id number] Oral 240 Other: Voiding Method Toilet # Voids 1 1 Weight 47.7 kg 47.7 kg 47.7 kg Results - Lab Results Most recent lab results Calcium 8.8 mg/dL (8.4-10.2) 07/28/18 06:05 Phosphorus 11.5 mg/dL (2.5-4.5) H* 07/27/18 14:41 Magnesium 1.8 mg/dL (1.6-2.3) 07/27/18 14:41 07/28/18 06:05 07/28/18 06:05 Assessment and Plan Plan: Assessment: 1. 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 She has history of hydronephrosis and the transplanted kidney immediately after the transplant surgery as well as an episode of rejection and May 2016. She appears to have progressed to end-stage renal disease now. 2. Status post donor renal allograft in 2014 at [facility]. Etiology is polycystic kidney disease and diabetic kidney disease. 3. Chronic kidney disease mineral bone disease maintained on calcitriol and Renvela. 4. Insulin dependent diabetes mellitus. 5. Metabolic acidosis secondary to panic kidney disease. Maintained on oral bicarbonate. 6. Hypovolemic hyponatremia improving with IV hydration. 7. Anemia of chronic kidney disease. Rule out iron deficiency. Plan: Maintain normal saline at 100 mL an hour. Check iron studies. Add Aranesp. With worsening renal function, it appears patient has progressed to end-stage renal disease. She is also complaining of nausea and vomiting over the last 1- 2 weeks which can be attributed to uremia. Consult vascular surgery for dialysis catheter placement. Plan for first hemodialysis treatment today and second treatment tomorrow. manager trade to help facilitate outpatient hemodialysis set up. She was told she is not a candidate for PD due to hernias. She wishes to get a second opinion. This will be done as an outpatient. Thank you for the consultation. I will continue to follow the patient with you during her hospital stay.
[2018-07-28] MEDS ORDERED: DARBEPOETIN ALFA 40 MCG/0.4 ML SYRINGE SQ SCH (12:00)
[2018-07-28 12:05] LABS: Glucose,Whole Blood 175 mg/dL (75-99)
[2018-07-28 13:11] LABS: Hemoglobin A1C 7.4 % (4.0-6.0)
[2018-07-28 16:18] LABS: Glucose,Whole Blood 129 mg/dL (75-99)
[2018-07-28 18:07] LABS: Iron Saturation 50.97 (12.00-45.00)
[2018-07-28] MEDS: fentaNYL (PF) 50 MCG/ML 2 ML AMP IV ONE ×2 (18:28→18:44)
[2018-07-28] MEDS: MIDAZOLAM 2 MG/2 ML VIAL IVP ONE ×2 (18:28→18:35)
[2018-07-28] MEDS ORDERED: LIDOCAINE 1% INJ 10MG/ML (20 ML MDV) SQ ONE ×2 (18:31→18:41)
[2018-07-28] MEDS ORDERED: IV FLUID CONTINUATION 900 ML IV ONE (18:38)
--- NOTE | 2018-07-28 18:49 | CONS ---
DATE OF CONSULTATION: 07/28/2018 This is a 52-year-old pleasant female. I was consulted for placement of a dialysis catheter. Patient has acute kidney injury and chronic kidney disease. Patient has a history of donor allograft in 2015 from [facility]. Post transplant she developed hydronephrosis and her renal function remained high. Patient was scheduled to have a dialysis catheter. Patient cannot have peritoneal dialysis because of the hernia. MEDICAL HISTORY: 1. History of diabetes mellitus. 2. Hypertension. 3. Chronic kidney disease. PHYSICAL EXAMINATION: NECK: Supple. No bruit appreciated. CHEST: Clear. ABDOMEN: Soft. Femoral pulses are present. DIAGNOSES: 1. Chronic kidney disease. 2. Insulin-dependent diabetes mellitus. 3. Chronic anemia. PLAN: Placement of dialysis catheter. Risks and complications of bleeding, infection, thrombosis have been discussed. MMODL / IJN: [id number] / YESICA
--- NOTE | 2018-07-28 19:40 | OP ---
OPERATIVE REPORT PREOPERATIVE DIAGNOSIS: Acute on chronic renal failure. PROCEDURE: Ultrasound-guided cm dialysis catheter, right jugular approach. SEDATION TIME: 42 minutes. PROCEDURE DESCRIPTION: This patient was brought to the floating labor gang supervisor. Right side of the neck and chest was prepped and draped in sterile manner. Lidocaine 1% plain was infiltrated in neck and chest area. After that, ultrasound-guided micropuncture was introduced into the right jugular vein and micropuncture guidewire was passed. A 4-Czech sheath was advanced on top of the guidewire. Then we passed a regular guidewire, which was parked in the inferior vena cava. After that a tunnel was created. Through the tunnel we brought the dialysis catheter. Dilator was advanced and the sheath was advanced. Through the sheath we introduced the dialysis catheter. Tip of the catheter in superior vena cava and atrium. Flushed with heparin, saline and the incision was closed with Vicryl and nylon. Patient tolerated the procedure well. MMODL / IJN: [id number] /
--- NOTE | 2018-07-28 19:47 | XR ---
EXAMINATION TYPE: XR chest 1V portable DATE OF EXAM: 07/28/2018 COMPARISON: 07/27/2018 HISTORY: Catheter placement TECHNIQUE: Single frontal view of the chest is obtained. FINDINGS: There is double-lumen right central venous catheter with the tip in the lower superior sedrick a cava. No pneumothorax. Lungs are clear. There is no heart failure. There is no pleural effusion. Th ere are chest leads. IMPRESSION: No active cardiopulmonary disease. No change.
[2018-07-28] MEDS: HYDROcodone/APAP 5-325MG 1 EACH TAB PO PRN (19:48)
[2018-07-28] MEDS: DOXAZOSIN 1 MG TAB PO SCH (20:15)
[2018-07-28 21:14] LABS: Glucose,Whole Blood 277 mg/dL (75-99)
[2018-07-28] MEDS: INSULIN DETEMIR 100 UNIT/ML 10 ML VIAL SQ SCH (21:27)
[2018-07-29] MEDS: HYDROcodone/APAP 5-325MG 1 EACH TAB PO PRN ×3 (02:21→17:40)
[2018-07-29 05:19] LABS: Hepatitis A Antibody IgM Non-Reactive (Non-Reactive); Hepatitis B Core IgM Non-Reactive (Non-Reactive)
[2018-07-29 05:58] LABS: Glucose,Whole Blood 129 mg/dL (75-99)
[2018-07-29] MEDS: INSULIN ASPART 100 UNIT/ML 1 ML 10 ML VIAL SQ SCH ×4 (06:05→21:44)
[2018-07-29] MEDS: SEVELAMER 800 MG TAB PO SCH ×3 (06:13→17:39)
[2018-07-29 07:05] LABS: Magnesium 1.7 mg/dL (1.6-2.3); Phosphorus 8.3 mg/dL (2.5-4.5); Potassium 4.4 mmol/L (3.5-5.1)
[2018-07-29 07:22] LABS: Basophils % (A) 1 %; Eosinophils # (A) 0.1 k/uL (0-0.7); Eosinophils % (A) 1 %; HCT 28.7 % (34.0-46.0); HGB 9.4 gm/dL (11.4-16.0); Lymphocytes # (A) 1.6 k/uL (1.0-4.8); Lymphocytes % (A) 26 %; MCH 32.5 pg (25.0-35.0); MCHC 32.7 g/dL (31.0-37.0); MCV 99.2 fL (80.0-100.0); Macrocytosis Slight; Mean Platelet Volume 8.7; Monocytes # (A) 0.4 k/uL (0-1.0); Monocytes % (A) 6 %; Neutrophils # (A) 3.9 k/uL (1.3-7.7); Neutrophils % (A) 64 %; Platelet Count 161 k/uL (150-450); RBC 2.89 m/uL (3.80-5.40); RDW 14.6 % (11.5-15.5); WBC 6.1 k/uL (3.8-10.6)
[2018-07-29] MEDS: ATENOLOL 50 MG TAB PO SCH ×2 (07:44→21:43)
[2018-07-29] MEDS: PANTOPRAZOLE 40 MG/10 ML VIAL IVP SCH ×2 (07:44→21:41)
[2018-07-29] MEDS: SODIUM CHLORIDE 0.9% 1,000 ML IV SCH ×2 (07:44→18:22)
[2018-07-29] MEDS: HEPARIN SODIUM,PORCINE 5,000 UNIT/ML 1 ML VIAL SQ SCH (07:45)
[2018-07-29] MEDS: CALCIUM ACETATE 667 MG CAP PO SCH ×2 (07:46→17:39)
--- NOTE | 2018-07-29 08:45 | IR ---
Fluoroscopy HISTORY: Dialysis catheter placement 3.1 minutes fluoroscopy time supplied to the referring clinician. 406 intraoperative C-arm images do cument the procedure. See dictated report from vascular surgery.
--- NOTE | 2018-07-29 10:06 | P.PN ---
Subjective Patient is seen in follow-up for chronic kidney disease stage V now progressed to end-stage renal disease. She had a permacath placed yesterday. She scheduled for first treatment of hemodialysis today. Nausea and vomiting have improved. Oral intake is gradually improving. No chest pain or shortness of breath. Vital signs are stable. General: The patient appeared well nourished and normally developed. HEENT: Head exam is unremarkable. Neck is without jugular venous distension. LUNGS: Lungs are clear to auscultation and percussion. Breath sounds decreased. HEART: Rate and Rhythm are regular. First and second heart sounds normal. No murmurs, rubs or gallops. ABDOMEN: Abdominal exam reveals normal bowel sounds. Non-tender and non- distended. No evidence of peritonitis. EXTREMITITES: No clubbing, cyanosis, or edema. Objective - Vital Signs Vital signs: Vital Signs Temp 98.6 F 07/29/18 08:00 Pulse 58 L 07/29/18 08:00 Resp 17 07/29/18 08:00 BP 159/83 07/29/18 08:00 Pulse Ox 98 07/29/18 08:00 Intake & Output 07/28/18 07/29/18 07/29/18 18:59 06:59 18:59 Intake Total 250 840 Output Total 450 Balance 250 390 Weight 47.7 kg 45.7 kg Intake: IV 150 Intake, IV Titration 100 600 Amount Sodium Chloride 0.9% 1, 100 600 000 ml @ 100 mls/hr IV . Q10H [facility] Rx#:[id number] Oral 240 Output: Urine 450 Other: Voiding Method Toilet # Voids 1 2 - Labs CBC & Chem 7: 07/29/18 06:18 07/29/18 06:18 Labs: Abnormal Lab Results - Last 24 Hours (Table) 07/28/18 07/28/18 07/28/18 Range/Units 06:05 06:05 12:03 RBC (3.80-5.40) m/uL Hgb (11.4-16.0) gm/dL Hct (34.0-46.0) % Sodium (137-145) mmol/L Carbon Dioxide (22-30) mmol/L BUN (7-17) mg/dL Creatinine (0.52-1.04) mg/dL Glucose (74-99) mg/dL POC Glucose (mg/dL) 175 H (75-99) mg/dL Hemoglobin A1c 7.4 H (4.0-6.0) % Phosphorus (2.5-4.5) mg/dL TIBC 206 L (228-460) ug/dL Iron Saturation 50.97 H (12.00-45.00) 07/28/18 07/28/18 07/29/18 Range/Units 16:16 21:12 05:56 RBC (3.80-5.40) m/uL Hgb (11.4-16.0) gm/dL Hct (34.0-46.0) % Sodium (137-145) mmol/L Carbon Dioxide (22-30) mmol/L BUN (7-17) mg/dL Creatinine (0.52-1.04) mg/dL Glucose (74-99) mg/dL POC Glucose (mg/dL) 129 H 277 H 129 H (75-99) mg/dL Hemoglobin A1c (4.0-6.0) % Phosphorus (2.5-4.5) mg/dL TIBC (228-460) ug/dL Iron Saturation (12.00-45.00) 07/29/18 07/29/18 Range/Units 06:18 06:18 RBC 2.89 L (3.80-5.40) m/uL Hgb 9.4 L (11.4-16.0) gm/dL Hct 28.7 L (34.0-46.0) % Sodium 134 L (137-145) mmol/L Carbon Dioxide 18 L (22-30) mmol/L BUN 72 H (7-17) mg/dL Creatinine 4.88 H (0.52-1.04) mg/dL Glucose 122 H (74-99) mg/dL POC Glucose (mg/dL) (75-99) mg/dL Hemoglobin A1c (4.0-6.0) % Phosphorus 8.3 H (2.5-4.5) mg/dL TIBC (228-460) ug/dL Iron Saturation (12.00-45.00) Assessment and Plan Plan: Assessment: 1. 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 She has history of hydronephrosis and the transplanted kidney immediately after the transplant surgery as well as an episode of rejection and May 2016. She appears to have progressed to end-stage renal disease now. 2. Status post donor renal allograft in 2014 at [facility]. Etiology is polycystic kidney disease and diabetic kidney disease. 3. Chronic kidney disease mineral bone disease maintained on calcitriol and Renvela. 4. Insulin dependent diabetes mellitus. 5. Metabolic acidosis secondary to chronic kidney disease. Maintained on oral bicarbonate. 6. Hypovolemic hyponatremia improving with IV hydration. 7. Anemia of chronic kidney disease. Iron replete. Intake and on Aranesp. 8. Hyperphosphatemia secondary to chronic kidney disease. Maintain Renvela. Expect further improvement postdialysis. Plan: Maintain normal saline at 100 mL an hour. First treatment of hemodialysis today. Second treatment tomorrow. Outpatient dialysis has been set up. Potential discharge after dialysis tomorrow. She was told she is not a candidate for PD due to hernias. She wishes to get a second opinion. This will be done as an outpatient. Maintain immunosuppression meds.
[2018-07-29] MEDS ORDERED: MAGNESIUM SULFATE-D5W PMX 1 GM in DEXTROSE/WATER 1 100ML.BAG IVPB ONE (10:30)
[2018-07-29 12:08] LABS: Glucose,Whole Blood 151 mg/dL (75-99)
[2018-07-29] MEDS: CALCITRIOL 0.25 MCG CAP PO SCH ×2 (12:41→21:43)
[2018-07-29] MEDS: MAGNESIUM OXIDE 400 MG TAB PO SCH (12:41)
[2018-07-29] MEDS: SODIUM BICARBONATE TAB 650 MG TAB PO SCH ×2 (12:42→21:49)
[2018-07-29] MEDS: FERROUS SULFATE 325 MG TAB PO SCH (12:42)
[2018-07-29] MEDS: PROGRAF 5 MG PO SCH ×2 (12:43→21:47)
[2018-07-29] MEDS: PROGRAF 1 MG PO SCH ×2 (12:43→21:45)
[2018-07-29] MEDS: CELLCEPT 500 MG PO SCH ×2 (12:43→21:46)
[2018-07-29] MEDS: predniSONE 5 MG TAB PO SCH (12:43)
[2018-07-29 17:01] LABS: Glucose,Whole Blood 352 mg/dL (75-99)
--- NOTE | 2018-07-29 19:31 | P.PN ---
Subjective Progress Note Date: 07/28/18 Progress note being dictated for Dr. Vasquez. 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 Maintained on IV fluid hydration with normal saline at 100 mL' s per hour. Sodium improved, 132. Worsening renal function, Creatinine 5.21. Vascular surgery consulted for perma cath placement for initiation of hemodialysis as per nephrology. Review of systems: CONSTITUTIONAL: No fever, positive fatigue. HEENT: No recent visual problems or hearing problems. Denied any sore throat. CARDIOVASCULAR: No chest pain, orthopnea, PND, no palpitations, no syncope. PULMONARY: No shortness of breath, no cough, no hemoptysis. GASTROINTESTINAL: Improved diarrhea, positive nausea, positive vomiting, no abdominal pain. Normoactive bowel sounds. NEUROLOGICAL: No headaches, no weakness, no numbness. HEMATOLOGICAL: Denies any bleeding or petechiae. GENITOURINARY: Denies any burning micturition, frequency, or urgency. Good urine output The rest of the 14 point review of systems is negative Active Medications Acetaminophen (Tylenol Tab) 650 mg PO Q6HR PRN PRN Reason: Mild Pain or Fever > 100.5 Last Admin: 07/27/18 21:00 Dose: 650 mg Hydrocodone Bitart/Acetaminophen ([place] 5-325) 1 each PO Q6HR PRN PRN Reason: Pain Last Admin: 07/27/18 21:57 Dose: 1 each Alprazolam (Xanax) 0.25 mg PO TID PRN PRN Reason: Anxiety Atenolol (Tenormin) 50 mg PO BID [facility] Last Admin: 07/28/18 08:35 Dose: 50 mg Calcitriol (Rocaltrol) 0.25 mcg PO BID [facility] Last Admin: 07/28/18 08:35 Dose: 0.25 mcg Calcium Acetate (Phoslo) 1,334 mg PO TID [facility] Last Admin: 07/28/18 08:35 Dose: 1,334 mg Darbepoetin Denzel (Aranesp) 40 mcg SQ Q7D [facility] Last Admin: 07/28/18 14:26 Dose: 40 mcg Doxazosin Mesylate (Cardura) 1 mg PO HS [facility] Last Admin: 07/27/18 21:26 Dose: 1 mg Ferrous Sulfate (Feosol) 325 mg PO DAILY [facility] Last Admin: 07/28/18 08:35 Dose: 325 mg Heparin Sodium (Porcine) (Heparin) 5,000 unit SQ Q12HR [facility] Last Admin: 07/28/18 08:36 Dose: 5,000 unit Sodium Chloride (Saline 0.9%) 1,000 mls @ 100 mls/hr IV .Q10H [facility] Last Admin: 07/28/18 14:26 Dose: 100 mls/hr Insulin Aspart (Novolog) 0 unit SQ ACHS [facility]; Protocol Last Admin: 07/28/18 16:25 Dose: Not Given Insulin Detemir (Levemir) 5 unit SQ HS [facility] Last Admin: 07/27/18 21:31 Dose: 5 unit Magnesium Oxide (Mag-Ox) 400 mg PO DAILY [facility] Last Admin: 07/28/18 08:35 Dose: 400 mg Naloxone HCl (Narcan) 0.2 mg IV Q2M PRN PRN Reason: Opioid Reversal Cellcept ( Mycophenolate Mofetil) 500 Mg Tablet 1,000 mg PO BID [facility] Last Admin: 07/28/18 08:36 Dose: 1,000 mg Prograf (Tacrolimus) (5 Mg Capsule) 5 mg PO Q12HR [facility] Last Admin: 07/28/18 08:36 Dose: 5 mg Prograf (Tacrolimus) (1 Mg Capsule) 1 mg PO Q12HR [facility] Last Admin: 07/28/18 08:36 Dose: 1 mg Ondansetron HCl (Zofran) 4 mg PO Q12HR PRN PRN Reason: Nausea And Vomiting Last Admin: 07/28/18 08:34 Dose: 4 mg Pantoprazole Sodium (Protonix) 40 mg IVP BID [facility] Last Admin: 07/28/18 08:35 Dose: 40 mg Prednisone () 5 mg PO DAILY [facility] Last Admin: 07/28/18 08:36 Dose: 5 mg Sevelamer Carbonate (Renvela) 800 mg PO TID-W/MEALS [facility] Last Admin: 07/28/18 12:29 Dose: Not Given Sodium Bicarbonate (Sodium Bicarbonate Tab) 650 mg PO BID [facility] Last Admin: 07/28/18 08:35 Dose: 650 mg Objective - Vital Signs Vital signs: Vital Signs Temp 98.3 F 07/28/18 16:00 Pulse 54 L 07/28/18 16:00 Resp 18 07/28/18 16:00 BP 152/81 07/28/18 16:00 Pulse Ox 100 07/28/18 16:00 Intake & Output 07/27/18 07/28/18 07/28/18 18:59 06:59 18:59 Intake Total 200 740 100 Balance 200 740 100 Weight 47.7 kg 47.7 kg 47.7 kg Intake: Intake, IV Titration 200 500 100 Amount Sodium Chloride 0.9% 1, 200 500 100 000 ml @ 100 mls/hr IV . Q10H [facility] Rx#:[id number] Oral 240 Other: Voiding Method Toilet # Voids 1 1 - Exam PHYSICAL EXAM: VITAL SIGNS: As above GENERAL: Lying in bed, tired appearing, no acute distress HEENT: Conjunctivae normal. eyes normal. Oral mucosa moist NECK: No JVD. No thyroid enlargement. No LNs CARDIOVASCULAR: S1, S2 muffled. Positive systolic murmur RESPIRATION: Breath sounds diminished in the bases. Occasional scattered rhonchi and crackles. No wheezing ABDOMEN: Soft, nontender . No guarding. no masses palpable. Bowel sounds heard. LEGS: Minimal edema. PSYCHIATRY: Alert and oriented -3, mood and affect normal. NERVOUS SYSTEM: Cranial N 2-12 grossly normal. Moves all 4 limbs. Diffuse weakness No focal deficits. Skin: no ulcer no rash - Labs CBC & Chem 7: 07/29/18 06:18 07/29/18 06:18 Labs: Abnormal Lab Results - Last 24 Hours (Table) 07/27/18 07/27/18 07/27/18 Range/Units 18:24 18:53 21:28 RBC (3.80-5.40) m/uL Hgb (11.4-16.0) gm/dL Hct (34.0-46.0) % Sodium (137-145) mmol/L Carbon Dioxide (22-30) mmol/L BUN (7-17) mg/dL Creatinine (0.52-1.04) mg/dL Glucose (74-99) mg/dL POC Glucose (mg/dL) 195 H 284 H (75-99) mg/dL Hemoglobin A1c (4.0-6.0) % Plasma Lactic Acid Billy 2.4 H* (0.7-2.0) mmol/L Total Protein (6.3-8.2) g/dL Lipase (23-300) U/L 07/27/18 07/28/18 07/28/18 Range/Units 21:43 06:05 06:05 RBC 3.00 L (3.80-5.40) m/uL Hgb 9.4 L D (11.4-16.0) gm/dL Hct 29.8 L (34.0-46.0) % Sodium 127 L (137-145) mmol/L Carbon Dioxide 15 L (22-30) mmol/L BUN 67 H (7-17) mg/dL Creatinine 4.99 H (0.52-1.04) mg/dL Glucose 264 H (74-99) mg/dL POC Glucose (mg/dL) (75-99) mg/dL Hemoglobin A1c 7.4 H (4.0-6.0) % Plasma Lactic Acid Billy (0.7-2.0) mmol/L Total Protein 5.8 L (6.3-8.2) g/dL Lipase 15 L (23-300) U/L 07/28/18 07/28/18 07/28/18 Range/Units 06:05 12:03 16:16 RBC (3.80-5.40) m/uL Hgb (11.4-16.0) gm/dL Hct (34.0-46.0) % Sodium 132 L (137-145) mmol/L Carbon Dioxide 17 L (22-30) mmol/L BUN 72 H (7-17) mg/dL Creatinine 5.21 H (0.52-1.04) mg/dL Glucose (74-99) mg/dL POC Glucose (mg/dL) 175 H 129 H (75-99) mg/dL Hemoglobin A1c (4.0-6.0) % Plasma Lactic Acid Billy (0.7-2.0) mmol/L Total Protein (6.3-8.2) g/dL Lipase (23-300) U/L Assessment and Plan Assessment: -Acute on chronic renal failure with possible acute prerenal acute tubular necrosis secondary to prerenal factors and dehydration, progressed to end-stage renal failure. -Hyponatremia, improving -Hyperkalemia, improved -Metabolic acidosis, present on -Anemia of chronic disease -History of polycystic kidney disease and renal transplant -Diabetes mellitus type 2 -Gastroesophageal reflux disease Plan: Continue on current medication regime ,monitoring and symptomatic treatment. Maintain IV fluid hydration. As mentioned above vascular surgery consulted for permacath placement for initiation of hemodialysis given progression to end-stage renal disease. Follow closely with nephrology. Close monitoring of renal function and electrolytes with repeat labs ordered for a.m. Prognosis guarded given multiple complex medical issues. Further recommendations to follow. The impression and plan of care has been dictated as directed. : I performed a history and examination of this patient, discussed the same with the dictator. I agree with the dictator's note ,documented as a scribe. Any additional findings or plans will be noted.
--- NOTE | 2018-07-29 19:39 | P.PN ---
Subjective Progress Note Date: 07/29/18 Progress note being dictated for Dr. Vasquez. 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 Maintained on IV fluid hydration with normal saline at 100 mL' s per hour. Sodium improved, 132. Worsening renal function, Creatinine 5.21. Vascular surgery consulted for perma cath placement for initiation of hemodialysis as per nephrology. 07/29/18 status post permacath placement. Currently, receiving first hemodialysis, tolerating well. Nausea, vomiting improving. Review of systems: CONSTITUTIONAL: No fever, positive fatigue. HEENT: No recent visual problems or hearing problems. Denied any sore throat. CARDIOVASCULAR: No chest pain, orthopnea, PND, no palpitations, no syncope. PULMONARY: No shortness of breath, no cough, no hemoptysis. GASTROINTESTINAL: No diarrhea, improving nausea, no vomiting, no abdominal pain. NEUROLOGICAL: No headaches, no weakness, no numbness. HEMATOLOGICAL: Denies any bleeding or petechiae. ENDOCRINE: Denies any polyuria or polydipsia. Active Medications Acetaminophen (Tylenol Tab) 650 mg PO Q6HR PRN PRN Reason: Mild Pain or Fever > 100.5 Last Admin: 07/27/18 21:00 Dose: 650 mg Hydrocodone Bitart/Acetaminophen ([place] 5-325) 1 each PO Q6HR PRN PRN Reason: Pain Last Admin: 07/29/18 17:40 Dose: 1 each Alprazolam (Xanax) 0.25 mg PO TID PRN PRN Reason: Anxiety Last Admin: 07/29/18 01:29 Dose: 0.25 mg Atenolol (Tenormin) 50 mg PO BID [facility] Last Admin: 07/29/18 07:44 Dose: 50 mg Calcitriol (Rocaltrol) 0.25 mcg PO BID [facility] Last Admin: 07/29/18 12:41 Dose: 0.25 mcg Calcium Acetate (Phoslo) 1,334 mg PO TID [facility] Last Admin: 07/29/18 17:39 Dose: 1,334 mg Darbepoetin Denzel (Aranesp) 40 mcg SQ Q7D [facility] Last Admin: 07/28/18 14:26 Dose: 40 mcg Doxazosin Mesylate (Cardura) 1 mg PO HS [facility] Last Admin: 07/28/18 20:15 Dose: 1 mg Ferrous Sulfate (Feosol) 325 mg PO DAILY [facility] Last Admin: 07/29/18 12:42 Dose: 325 mg Sodium Chloride (Saline 0.9%) 1,000 mls @ 100 mls/hr IV .Q10H [facility] Last Admin: 07/29/18 18:22 Dose: Not Given Insulin Aspart (Novolog) 0 unit SQ ACHS [facility]; Protocol Last Admin: 07/29/18 17:40 Dose: 6 unit Insulin Detemir (Levemir) 5 unit SQ HS [facility] Last Admin: 07/28/18 21:27 Dose: 5 unit Magnesium Oxide (Mag-Ox) 400 mg PO DAILY [facility] Last Admin: 07/29/18 12:41 Dose: 400 mg Naloxone HCl (Narcan) 0.2 mg IV Q2M PRN PRN Reason: Opioid Reversal Cellcept ( Mycophenolate Mofetil) 500 Mg Tablet 1,000 mg PO BID [facility] Last Admin: 07/29/18 12:43 Dose: 1,000 mg Prograf (Tacrolimus) (5 Mg Capsule) 5 mg PO Q12HR [facility] Last Admin: 07/29/18 12:43 Dose: 5 mg Prograf (Tacrolimus) (1 Mg Capsule) 1 mg PO Q12HR [facility] Last Admin: 07/29/18 12:43 Dose: 1 mg Ondansetron HCl (Zofran) 4 mg PO Q12HR PRN PRN Reason: Nausea And Vomiting Last Admin: 07/28/18 08:34 Dose: 4 mg Pantoprazole Sodium (Protonix) 40 mg IVP BID [facility] Last Admin: 07/29/18 07:44 Dose: 40 mg Prednisone () 5 mg PO DAILY [facility] Last Admin: 07/29/18 12:43 Dose: 5 mg Sevelamer Carbonate (Renvela) 800 mg PO TID-W/MEALS [facility] Last Admin: 07/29/18 17:39 Dose: 800 mg Sodium Bicarbonate (Sodium Bicarbonate Tab) 650 mg PO BID [facility] Last Admin: 07/29/18 12:42 Dose: 650 mg Objective - Vital Signs Vital signs: Vital Signs Temp 98.4 F 07/29/18 16:00 Pulse 63 07/29/18 16:00 Resp 20 07/29/18 16:00 BP 172/89 07/29/18 16:00 Pulse Ox 98 07/29/18 16:00 Intake & Output 07/29/18 07/29/18 07/30/18 06:59 18:59 06:59 Intake Total 840 Output Total 450 Balance 390 Weight 45.7 kg Intake: Intake, IV Titration 600 Amount Sodium Chloride 0.9% 1, 600 000 ml @ 100 mls/hr IV . Q10H [facility] Rx#:[id number] Oral 240 Output: Urine 450 Other: Voiding Method Toilet # Voids 1 - Exam PHYSICAL EXAM: VITAL SIGNS: As above GENERAL: Sitting up in bed, no acute distress HEENT: Conjunctivae normal. eyes normal. Oral mucosa moist NECK: No JVD. No thyroid enlargement. No LNs CARDIOVASCULAR: S1, S2 muffled. Positive systolic murmur RESPIRATION: Breath sounds diminished in the bases. No rhonchi, crackles or wheezing ABDOMEN: Soft, nontender . No guarding. no masses palpable. Positive Bowel sounds. LEGS: Minimal edema. PSYCHIATRY: Alert and oriented -3, mood and affect normal. NERVOUS SYSTEM: Cranial N 2-12 grossly normal. Moves all 4 limbs. Diffuse weakness No focal deficits. Skin: no ulcer no rash - Labs CBC & Chem 7: 07/29/18 06:18 07/29/18 06:18 Labs: Abnormal Lab Results - Last 24 Hours (Table) 07/28/18 07/29/18 07/29/18 Range/Units 21:12 05:56 06:18 RBC 2.89 L (3.80-5.40) m/uL Hgb 9.4 L (11.4-16.0) gm/dL Hct 28.7 L (34.0-46.0) % Sodium (137-145) mmol/L Carbon Dioxide (22-30) mmol/L BUN (7-17) mg/dL Creatinine (0.52-1.04) mg/dL Glucose (74-99) mg/dL POC Glucose (mg/dL) 277 H 129 H (75-99) mg/dL Phosphorus (2.5-4.5) mg/dL 07/29/18 07/29/18 07/29/18 Range/Units 06:18 11:50 16:58 RBC (3.80-5.40) m/uL Hgb (11.4-16.0) gm/dL Hct (34.0-46.0) % Sodium 134 L (137-145) mmol/L Carbon Dioxide 18 L (22-30) mmol/L BUN 72 H (7-17) mg/dL Creatinine 4.88 H (0.52-1.04) mg/dL Glucose 122 H (74-99) mg/dL POC Glucose (mg/dL) 151 H 352 H (75-99) mg/dL Phosphorus 8.3 H (2.5-4.5) mg/dL Assessment and Plan Assessment: -Acute on chronic renal failure with possible acute prerenal acute tubular necrosis secondary to prerenal factors and dehydration, progressed to end-stage renal failure. Status post permacath placement with initiation of hemodialysis. -Hyponatremia, improving -Hyperkalemia, improved -Metabolic acidosis, present on -Anemia of chronic disease -History of polycystic kidney disease and renal transplant -Diabetes mellitus type 2 -Gastroesophageal reflux disease Plan: Continue on current medication regime ,monitoring and symptomatic treatment. Maintain IV fluid hydration. Scheduled for second hemodialysis tomorrow. Discharge planning in progress for tomorrow after hemodialysis pending clearance from nephrology. Outpatient dialysis arranged as per case management. Further recommendations to follow. The impression and plan of care has been dictated as directed. : I performed a history and examination of this patient, discussed the same with the dictator. I agree with the dictator's note ,documented as a scribe. Any additional findings or plans will be noted.
[2018-07-29 21:12] LABS: Glucose,Whole Blood 311 mg/dL (75-99)
[2018-07-29] MEDS: DOXAZOSIN 1 MG TAB PO SCH (21:44)
[2018-07-29] MEDS: INSULIN DETEMIR 100 UNIT/ML 10 ML VIAL SQ SCH (21:44)
[2018-07-30 06:14] LABS: Glucose,Whole Blood 126 mg/dL (75-99)
[2018-07-30 06:43] LABS: Basophils % (A) 0 %; Eosinophils % (A) 1 %; HCT 29.8 % (34.0-46.0); HGB 9.3 gm/dL (11.4-16.0); Lymphocytes % (A) 24 %; MCH 31.4 pg (25.0-35.0); MCHC 31.4 g/dL (31.0-37.0); MCV 100.1 fL (80.0-100.0); Macrocytosis Slight; Mean Platelet Volume 8.1; Monocytes # (A) 0.4 k/uL (0-1.0); Monocytes % (A) 9 %; Neutrophils # (A) 2.6 k/uL (1.3-7.7); Neutrophils % (A) 62 %; Platelet Count 138 k/uL (150-450); RBC 2.97 m/uL (3.80-5.40); RDW 14.5 % (11.5-15.5); WBC 4.1 k/uL (3.8-10.6)
[2018-07-30] MEDS: CALCIUM ACETATE 667 MG CAP PO SCH ×2 (06:45→08:36)
[2018-07-30 06:48] LABS: Potassium 3.5 mmol/L (3.5-5.1)
[2018-07-30] MEDS: SEVELAMER 800 MG TAB PO SCH ×2 (06:53→11:35)
[2018-07-30 08:36] VITALS: RESP 16
[2018-07-30] MEDS: SODIUM CHLORIDE 0.9% 1,000 ML IV SCH (08:38)
[2018-07-30] MEDS: INSULIN ASPART 100 UNIT/ML 1 ML 10 ML VIAL SQ SCH ×2 (08:38→11:35)
[2018-07-30] MEDS: PROGRAF 1 MG PO SCH (08:48)
[2018-07-30] MEDS: predniSONE 5 MG TAB PO SCH (08:48)
[2018-07-30] MEDS: PROGRAF 5 MG PO SCH (08:48)
[2018-07-30] MEDS: CELLCEPT 500 MG PO SCH (08:48)
[2018-07-30] MEDS: FERROUS SULFATE 325 MG TAB PO SCH (08:49)
[2018-07-30] MEDS: PANTOPRAZOLE 40 MG/10 ML VIAL IVP SCH (08:49)
[2018-07-30] MEDS: ATENOLOL 50 MG TAB PO SCH (08:49)
[2018-07-30] MEDS: MAGNESIUM OXIDE 400 MG TAB PO SCH (08:49)
[2018-07-30] MEDS: CALCITRIOL 0.25 MCG CAP PO SCH (08:49)
[2018-07-30] MEDS: SODIUM BICARBONATE TAB 650 MG TAB PO SCH (08:49)
[2018-07-30] MEDS: HYDROcodone/APAP 5-325MG 1 EACH TAB PO PRN (08:59)
[2018-07-30 11:27] LABS: Glucose,Whole Blood 86 mg/dL (75-99)
[2018-07-30 12:09] VITALS: BMI 17.8
[2018-07-30 13:23] VITALS: PULSE 60
[2018-07-30 13:25] VITALS: BP 142/76; TEMP 98.3
--- NOTE | 2018-07-30 13:41 | P.PN ---
Subjective Patient is seen in follow-up for chronic kidney disease stage V now progressed to end-stage renal disease. She had a permacath placed this admission. She has undergone 2 treatments of hemodialysis and as tolerated it well so far. Nausea and vomiting have improved. Oral intake is gradually improving. No chest pain or shortness of breath. Vital signs are stable. General: The patient appeared well nourished and normally developed. HEENT: Head exam is unremarkable. Neck is without jugular venous distension. LUNGS: Lungs are clear to auscultation and percussion. Breath sounds decreased. HEART: Rate and Rhythm are regular. First and second heart sounds normal. No murmurs, rubs or gallops. ABDOMEN: Abdominal exam reveals normal bowel sounds. Non-tender and non- distended. No evidence of peritonitis. EXTREMITITES: No clubbing, cyanosis, or edema. Objective - Vital Signs Vital signs: Vital Signs Temp 98.3 F 07/30/18 12:00 Pulse 60 07/30/18 12:00 Resp 16 07/30/18 12:00 BP 142/76 07/30/18 12:00 Pulse Ox 99 07/30/18 12:00 Intake & Output 07/29/18 07/30/18 07/30/18 18:59 06:59 18:59 Intake Total 702 Output Total 800 Balance -98 Weight 47.1 kg 47.1 kg Intake: Oral 702 Output: Urine 800 Other: Voiding Method Toilet # Voids 1 1 - Labs CBC & Chem 7: 07/30/18 05:41 07/30/18 05:41 Labs: Abnormal Lab Results - Last 24 Hours (Table) 07/29/18 07/29/18 07/30/18 Range/Units 16:58 21:10 05:41 RBC 2.97 L (3.80-5.40) m/uL Hgb 9.3 L (11.4-16.0) gm/dL Hct 29.8 L (34.0-46.0) % MCV 100.1 H (80.0-100.0) fL Plt Count 138 L (150-450) k/uL Sodium (137-145) mmol/L Carbon Dioxide (22-30) mmol/L BUN (7-17) mg/dL Creatinine (0.52-1.04) mg/dL Glucose (74-99) mg/dL POC Glucose (mg/dL) 352 H 311 H (75-99) mg/dL 07/30/18 07/30/18 Range/Units 05:41 06:11 RBC (3.80-5.40) m/uL Hgb (11.4-16.0) gm/dL Hct (34.0-46.0) % MCV (80.0-100.0) fL Plt Count (150-450) k/uL Sodium 134 L (137-145) mmol/L Carbon Dioxide 21 L (22-30) mmol/L BUN 45 H (7-17) mg/dL Creatinine 3.50 H (0.52-1.04) mg/dL Glucose 112 H (74-99) mg/dL POC Glucose (mg/dL) 126 H (75-99) mg/dL Assessment and Plan Plan: Assessment: 1. 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 She has history of hydronephrosis and the transplanted kidney immediately after the transplant surgery as well as an episode of rejection and May 2016. She appears to have progressed to end-stage renal disease now. 2. Status post donor renal allograft in 2014 at [facility]. Etiology is polycystic kidney disease and diabetic kidney disease. 3. Chronic kidney disease mineral bone disease maintained on calcitriol and Renvela. 4. Insulin dependent diabetes mellitus. 5. Metabolic acidosis secondary to chronic kidney disease. Maintained on oral bicarbonate. 6. Hypovolemic hyponatremia improving with IV hydration. 7. Anemia of chronic kidney disease. Iron replete. Maintained on Aranesp. 8. Hyperphosphatemia secondary to chronic kidney disease. Maintain Renvela. Expect further improvement postdialysis. Plan: Stable to be discharged home from nephrology standpoint. Next hemodialysis on Thursday, which will be at the outpatient center. She was told she is not a candidate for PD due to hernias. She wishes to get a second opinion. This will be done as an outpatient. Maintain immunosuppression meds.
--- NOTE | 2018-07-31 05:48 | DS ---
DISCHARGE SUMMARY FINAL DIAGNOSES: 1. Acute on chronic renal failure with possible acute tubular necrosis secondary to prerenal factors, dehydration, disease stage IV. 2. Status post PermCath and newly initiated hemodialysis. 3. Hyponatremia. 4. Hypokalemia. 5. Metabolic acidosis. 6. Anemia of chronic disease. 7. History of polycystic kidney disease with history of renal transplant. 8. Diabetes mellitus type 2. 9. Gastroesophageal reflux disease. DISCHARGE DISPOSITION: The patient being discharged in stable condition with guarded prognosis. Total time taken 35 minutes. HISTORY OF PRESENT ILLNESS: This 52-year-old woman with a past medical history of multiple medical problems admitted with acute on chronic renal failure, the creatinine was more than 5. Patient evaluated by Dr. Adrian because of nonimprovement, the hemodialysis catheter inserted and dialysis initiated. The patient improved significantly. PHYSICAL EXAMINATION: Vital signs stable. Cardiovascular: S1, S2. Abdomen soft. Nervous System: No focal deficits. The patient improved significantly. DISCHARGE ADVICE AND MEDICATIONS: 1. Diet is cardiac diet. 2. Activity limited until followup. 3. Follow up with Dr. White to 2 to 3 days. 4. Follow up with Dr. Adrian as advised. 5. Follow up with Dr. Crespo as advised. DISCHARGE MEDICATIONS: 1. Tenormin 50 mg p.o. b.i.d. 2. Rocaltrol 0.25 mg p.o. b.i.d. 3. PhosLo 1335 mg p.o. t.i.d. 4. Cardura 1 mg q.h.s. 5. Vitamin D2 50,000 p.o. monthly. 6. Iron 320 mg p.o. daily. 7. Magnesium oxide 400 mg. 8. CellCept 2000 mg p.o. b.i.d. 9. Prednisone 5 mg p.o. daily. 10.Sodium bicarb 650 mg p.o. b.i.d. 11.Prograf 6 mg b.i.d. 12.Tylenol p.r.n. 13.NovoLog a.c. and t.i.d. 14.Trogeo 7 units subcu q.h.s. 15.Renvela 800 mg p.o. t.i.d. with meals. Once again the patient will be discharged in stable condition with guarded prognosis. MMODL / IJN: [id number] / [id number]
== END 2018-07-30 16:20 | disposition home or self-care (01) | DRG 674 ==
LOC: EC 13:17 → 3SCARD 16:32
PROVIDERS: ADMIT Internal Medicine; ATTEND Internal Medicine
PROC: 0JH63XZ Insertion of Tunneled Vascular Access Device into Chest Subcutaneous Tissue and Fascia, Percutaneous Approach (ICD-10-PCS; principal; 2018-07-28 12:15)
PROC: 02HV33Z Insertion of Infusion Device into Superior Vena Cava, Percutaneous Approach (ICD-10-PCS; 2018-07-28 12:15)
PROC: 5A1D70Z Performance of Urinary Filtration, Intermittent, Less than 6 Hours Per Day (ICD-10-PCS; 2018-07-30)
DX: N17.0 Acute kidney failure with tubular necrosis (principal); T86.12 Kidney transplant failure; E44.0 Moderate protein-calorie malnutrition; E87.1 Hypo-osmolality and hyponatremia; E87.2 Acidosis; Z68.1 Body mass index [BMI] 19.9 or less, adult; N18.6 End stage renal disease; E11.22 Type 2 diabetes mellitus with diabetic chronic kidney disease; E83.39 Other disorders of phosphorus metabolism; E87.5 Hyperkalemia; D63.1 Anemia in chronic kidney disease; K21.9 Gastro-esophageal reflux disease without esophagitis; E89.2 Postprocedural hypoparathyroidism; R19.7 Diarrhea, unspecified; I10 Essential (primary) hypertension; E83.89 Other disorders of mineral metabolism; E86.0 Dehydration; Z79.4 Long term (current) use of insulin; Z79.52 Long term (current) use of systemic steroids; Z79.899 Other long term (current) drug therapy; Z88.2 Allergy status to sulfonamides; Z90.411 Acquired partial absence of pancreas; Z87.891 Personal history of nicotine dependence; Z83.3 Family history of diabetes mellitus; Z82.71 Family history of polycystic kidney; Z80.49 Family history of malignant neoplasm of other genital organs
CPT/HCPCS: 36415; 36558; 71045; 71046; 76937; 77001; 80048; 80053; 80074; 81001; 82150; 82728; 83036; 83540; 83550; 83605; 83690; 83735; 84100; 85025; 85610; 86704; 87502; 90935; 93005; 96361; 96374; 99285